=== PATIENT | female | born 1995 | race Caucasian/White ===

== ENCOUNTER 2017-12-13 19:32 | Emergency (ER) | payer OTHER ==
[2017-12-13 20:11] VITALS: BP 109/62
--- NOTE | 2017-12-13 21:06 | UC ---
Throat Pain/Nasal Alvin HPI - HPI Summary HPI Summary: 22-year-old female presents with onset of sore throat last evening. Denies fever, chills, nasal congestion, nasal drainage, dysphagia, cough, chest pain, shortness of breath, abdominal pain, nausea or vomiting. States her roommate was diagnosed with strep throat yesterday. - History of Current Complaint Chief Complaint: UCGeneralIllness Stated Complaint: SORE THROAT Time Seen by Provider: 12/13/17 20:41 Hx Obtained From: Patient ?: No Onset/Duration: Lasting Days - 1 Pain Intensity: 0 Cough: None Associated Signs & Symptoms: Negative: Dysphagia, Hoarseness, Sinus Discomfort, Nasal Discharge, Fever, Vomiting, Rash - Allergies/Home Medications Allergies/Adverse Reactions: Allergies Allergy/AdvReac Type Severity Reaction Status Date / Time No Known Allergies Allergy Verified 12/13/17 20:11 Home Medications: Home Medications Linaclotide (NF) [Linzess (NF)] 145 mcg PO DAILY 12/13/17 [History Confirmed ] Norethindr/Eth Estradiol(Nf) [Lo Loestrin Fe (NF)] 1 tab PO DAILY 12/13/17 [ History Confirmed 12/13/17] PMH/Surg Hx/FS Hx/Imm Hx Previously Healthy: Yes Other GI/ History: IBS - Surgical History Surgical History: Yes Surgery Procedure, Year, and Place: Tonsils - Family History Family History: Noncontributory - Social History Occupation: Student Lives: Dormitory/Roommates Alcohol Use: Weekly Substance Use Type: None Smoking Status (MU): Never Smoked Tobacco Review of Systems Constitutional: Negative Skin: Negative Eyes: Negative ENT: Sore Throat Respiratory: Negative Cardiovascular: Negative Gastrointestinal: Negative Is Patient Immunocompromised?: No All Other Systems Reviewed And Are Negative: Yes Physical Exam Triage Information Reviewed: Yes Appearance: Well-Appearing, No Pain Distress, Well-Nourished Vital Signs: Initial Vital Signs Temp 98.2 F 12/13/17 20:07 Pulse 78 12/13/17 20:07 Resp 16 12/13/17 20:07 BP 109/62 12/13/17 20:07 Pulse Ox 98 12/13/17 20:07 Eyes: Positive: Conjunctiva Clear. Negative: Discharge ENT: Positive: Hearing grossly normal, Pharyngeal erythema, TMs normal, Uvula midline, Other - Tonsils surgically absent. Negative: Nasal congestion, Nasal drainage, Trismus, Muffled voice, Sinus tenderness Neck: Positive: Supple, Nontender, No Lymphadenopathy Respiratory: Positive: Lungs clear, Normal breath sounds, No respiratory distress Cardiovascular: Positive: RRR, No Murmur Abdomen Description: Positive: Nontender, No Organomegaly, Soft. Negative: Distended, Guarding Neurological: Positive: Alert Skin Exam: Normal Diagnostics - Laboratory Diagnostic Studies Completed/Ordered: Rapid strep negative Throat Pain/Nasal Course/Dx - Course Course Of Treatment: 22 year old female with 1 day sore throat. Afebrile. Exam revealed pharyngeal erythema with surgically absent tonsils. Rapid strep negative. Recommend symptomatic treatment for viral pharyngitis. She is to follow up at [facility] in 7 days if no improvement. Warning symptoms reviewed. Patient verbalizes understanding and agrees wiht POC. - Differential Dx/Diagnosis Differential Diagnosis/HQI/PQRI: Mononucleosis, Pharyngitis Provider Diagnoses: Viral pharyngitis Discharge - Sign-Out/Discharge Documenting (check all that apply): Patient Departure All imaging exams completed and their final reports reviewed: No Studies - Discharge Plan Condition: Stable Disposition: HOME Patient Education Materials: Pharyngitis (ED) Referrals: [facility] Colby MARTINEZ [Primary Care Provider] - Additional Instructions: Rapid strep test was performed in the clinic today was negative. Her symptoms are likely from a viral infection. Viral infections do not respond antibiotics and typically run their course over 7-10 days. Be sure to drink plenty of fluids and stay well-hydrated. Use salt water gargles several times throughout the day. Take [id number] acetaminophen (Tylenol) or ibuprofen (Advil, Motrin) according to directions as needed for pain. You may use Chloraseptic spray or Cepacol lozenges for some temporary relief for your sore throat. Return here or follow up with the [facility] in 7 days if your symptoms persist. Seek immediate medical attention if you have a persistent fever greater than 100.5 F despite taking acetaminophen or ibuprofen, you're unable to swallow, difficulty breathing, or any worsening of symptoms. - Billing Disposition and Condition Condition: STABLE Disposition: Home
== END 2017-12-13 21:20 | disposition home or self-care (01) ==
LOC: UCEAST 19:32
DX: J02.9 Acute pharyngitis, unspecified (principal)
CPT/HCPCS: 87070; 87651; 99201; G0463